=== PATIENT | male | born 1975 | race Caucasian/White ===

== ENCOUNTER 2016-10-26 09:53 | Emergency (ER) | payer OTHER ==
[2016-10-26 09:57] VITALS: TEMP 98.1; O2SAT 96
[2016-10-26] MEDS ORDERED: LET GEL TOPICAL 1 EA SYR TP ONE (10:08)
[2016-10-26] MEDS ORDERED: IBUPROFEN 600 MG TAB PO ONE (10:58)
[2016-10-26] MEDS ORDERED: HYDROCODONE/APAP 5/325 TAB PO ONE (10:58)
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
[2016-10-26] MEDS ORDERED: LIDOCAINE 5% 1 EA PATCH TD SCH (11:00)
[2016-10-26 11:17] VITALS: BP 125/67; PULSE 76; RESP 16
[2016-10-26] MEDS ORDERED: PATCH REMOVAL 1 EA PATCH TD SCH (21:00)
== END 2016-10-26 11:20 | disposition home or self-care (01) ==
DX: S42.022A Displaced fracture of shaft of left clavicle, initial encounter for closed fracture (principal); V18.4XXA Pedal cycle driver injured in noncollision transport accident in traffic accident, initial encounter; Y92.410 Unspecified street and highway as the place of occurrence of the external cause; Y99.8 Other external cause status; Y93.55 Activity, bike riding
CPT/HCPCS: A4565